=== PATIENT | female | born 1980 | race Caucasian/White ===

== ENCOUNTER 2017-08-18 17:47 | Emergency (ER) | payer BC ==
[~2017-08-18] VITALS: Ht 162.6 cm; Wt 115.5 kg
[~2017-08-18 17:47] MED LIST: AMBIEN5 MG PO; AUGMENTIN875 MG PO; CAMILA0.35 MG PO; CEPHALEXIN500 MG PO; CIPRO500 MG PO; CLONIDINE HCL0.1 MG PO; DEPAKOTE ER (E500 MG PO; DEPAKOTE ER500 MG PO; ENDOCET 5-3251 EACH PO; FLOMAX0.4 MG PO; FLONASE16 G1 BOTH NARES; LABETALOL HCL200 MG PO; LATUDA20 MG PO; LATUDA60 MG PO; LATUDA80 MG PO; LEXAPRO5 MG PO; METRONIDAZOLE500 MG PO; NAPROXEN500 MG PO; NIFEDIPINE ER60 MG PO; ORTHO TRI-CYCL1 EACH PO; PRENATAL TABLE1 EAC3 PO; QUETIAPINE FUM100 MG PO; UNISOM SLEEP AI25 MG PO; ZITHROMAX250 MG PO; ZOFRAN ODT4 MG PO
[2017-08-18 18:20] LABS: ADD MIUA? YES; BILIRUBIN NEGATIVE; BLOOD MODERATE; COLOR YELLOW ((YELLOW)); GLUCOSE (STRIP) NEGATIVE; KETONES NEGATIVE; LEUKOCYTES MODERATE; NITRITE NEGATIVE; PROTEIN (STRIP) NEGATIVE; SPECIFIC GRAVITY 1.009 (1.000-1.030)
[2017-08-18 18:25] LABS: BACTERIA RARE /HPF; EPITHELIAL CELLS 1+ /HPF; MUCUS NONE SEEN /LPF; UCUL ADDED? YES; WHITE BLOOD CELLS 20-30 /HPF (0-5)
[2017-08-18] MEDS ORDERED: BACTRIM,SEPT1 TABLET PO (18:31)
[2017-08-18] MEDS ORDERED: DIVALPROEX SOD500 MG PO (18:31)
[2017-08-18] MEDS ORDERED: ONDANSETRON ODT4 MG PO (18:31)
[2017-08-18] MEDS ORDERED: PENTASA500 MG PO (18:32)
[2017-08-18] MEDS ORDERED: TRI-ESTARYLLA1 EACH PO (18:32)
[2017-08-18 19:01] LABS: HEMATOCRIT 33.2 % (36.0-46.0); MCH 29.5 PG (29.0-34.0); MCHC 33.1 G/DL (30.0-36.0); PLATELET COUNT 152 K/uL (156-360); RBC DIS.WIDTH-CV 13.4 % (11.8-14.6); RBC DIS.WIDTH-SD 44.3 % (39-53); RED BLOOD COUNT 3.73 M/uL (3.80-5.20); WHITE BLOOD COUNT 9.5 K/uL (4.1-10.2)
[2017-08-18 20:27] LABS: CHLORIDE 102 mEq/L (99-109); SODIUM 134 mEq/L (136-147)
[2017-08-18 20:29] LABS: GLUCOSE 94 mg/dL (70-99)
[2017-08-18 20:30] LABS: ANION GAP 9 MEQ/L (2-14)
[2017-08-18 20:31] LABS: TOTAL BILIRUBIN 0.4 mg/dL (0.0-1.0)
[2017-08-18 20:32] LABS: ALKALINE PHOSPHATASE 58 IU/L (3-129)
[2017-08-18 20:33] LABS: GFR ESTIMATE (CALCULATED) > 59 mL/min/
[2017-08-18 20:34] LABS: DIRECT BILIRUBIN 0.3 mg/dL (0.0-0.3); UREA NITROGEN (BUN) 10 mg/dL (9-23)
[2017-08-18 20:36] LABS: LIPASE 3 U/L (1.0-51.0)
[2017-08-18] MEDS ORDERED: ZOFRAN4 MG PO (21:46)
[2017-08-18 22:09] VITALS: BP 115/89
== END 2017-08-18 22:10 | disposition home or self-care (01) ==
LOC: EME 17:47
PROVIDERS: Emergency Medicine
DX: N20.0 Calculus of kidney (principal); N39.0 Urinary tract infection, site not specified; E86.0 Dehydration; Z87.442 Personal history of urinary calculi
CPT/HCPCS: 80048; 80076; 81003; 83605; 83690; 85027; 87040; 87086; 99281; 99284

== ENCOUNTER 2018-06-03 12:53 | Inpatient (IN) | payer BC ==
[2018-06-03] VITALS (7 sets, daily range): BP systolic 95–103; BP diastolic 63–73
[~2018-06-03] VITALS: Ht 165.1 cm; Wt 123.0 kg
[~2018-06-03 12:53] MED LIST changes: +BACTRIM,SEPT1 TABLET PO; +DIVALPROEX SOD500 MG PO; +ONDANSETRON ODT4 MG PO; +PENTASA500 MG PO; +TRI-ESTARYLLA1 EACH PO; +ZOFRAN4 MG PO
[2018-06-03 13:27] LABS: HEMATOCRIT 42.4 % (36.0-46.0); HEMOGLOBIN 13.7 G/DL (11.9-15.5); MCH 29.1 PG (29.0-34.0); MCHC 32.3 G/DL (30.0-36.0); PLATELET COUNT 117 K/uL (156-360); RBC DIS.WIDTH-CV 14.9 % (11.8-14.6); RBC DIS.WIDTH-SD 49.3 % (39-53); RED BLOOD COUNT 4.71 M/uL (3.80-5.20)
[2018-06-03 13:48] LABS: CHLORIDE 101 mEq/L (99-109); POTASSIUM 3.9 mEq/L (3.7-5.4); SODIUM 138 mEq/L (136-147)
[2018-06-03 13:51] LABS: GLUCOSE 92 mg/dL (70-99); TOTAL PROTEIN 5.6 g/dL (6.4-8.3)
[2018-06-03 13:53] LABS: TOTAL BILIRUBIN 0.8 mg/dL (0.0-1.0)
[2018-06-03 13:54] LABS: ALKALINE PHOSPHATASE 95 IU/L (3-129); CREATININE 2.6 mg/dL (0.6-1.3); GFR ESTIMATE (CALCULATED) 22 mL/min/
[2018-06-03 13:55] LABS: UREA NITROGEN (BUN) 26 mg/dL (9-23)
[2018-06-03 13:56] LABS: AST (GOT) 15 IU/L (2-34)
[2018-06-03 13:57] LABS: ALT (GPT) 17 IU/L (3-49)
[2018-06-03 13:58] LABS: LIPASE 7 U/L (1.0-51.0)
[2018-06-03 14:00] LABS: TROP-I INTERPRETATION NEGATIVE; TROPONIN-I 0.07 ng/mL (0.0-0.30)
[2018-06-03 14:46] LABS: QUANTITATIVE HCG < 4.0 MIU/ML
[2018-06-03 15:00] LABS: APPEARANCE CLOUDY ((CLEAR)); BILIRUBIN NEGATIVE; BLOOD SMALL; COLOR AMBER ((YELLOW)); GLUCOSE (STRIP) NEGATIVE; KETONES 5; LEUKOCYTES MODERATE; NITRITE NEGATIVE; PROTEIN (STRIP) 100; SPECIFIC GRAVITY 1.025 (1.000-1.030)
[2018-06-03 15:14] LABS: WHITE BLOOD CELLS TNTC /HPF (0-5)
[2018-06-03 15:15] LABS: BACTERIA 3+ /HPF; EPITHELIAL CELLS 2+ /HPF; MUCUS 1+ /LPF; RED BLOOD CELLS NONE SEEN /HPF (0-5); UCUL ADDED? YES
[2018-06-03] MEDS ORDERED: HIPREX1 GM PO (17:15)
[2018-06-03] MEDS ORDERED: TRI FEMYNOR 281 EACH PO (17:16)
[2018-06-03] MEDS ORDERED: BUDESONIDE EC3 MG PO (17:16)
[2018-06-03] MEDS ORDERED: HUMIRA40 MG/0.1 SC (17:17)
[2018-06-03] MEDS ORDERED: ADVIL200 MG PO (17:19)
[2018-06-03] MEDS ORDERED: TYLENOL EXTRA500 MG PO (17:19)
[2018-06-03 22:47] LABS: HEMATOCRIT 35.9 % (36.0-46.0); MCH 27.9 PG (29.0-34.0); MCHC 30.9 G/DL (30.0-36.0); MCV 90.2 FL (83-99); RBC DIS.WIDTH-SD 49.9 % (39-53); RED BLOOD COUNT 3.98 M/uL (3.80-5.20); WHITE BLOOD COUNT 22.4 K/uL (4.1-10.2)
[2018-06-03 23:02] LABS: HEMOGLOBIN 11.1 G/DL (11.9-15.5); PLAT.SUFFICIENCY VERY DECREASED; PLATELET COUNT 63 K/uL (156-360)
[2018-06-03 23:12] LABS: ALBUMIN 2.4 G/DL (3.2-4.8); ALKALINE PHOSPHATASE 38 IU/L (3-129); ALT (GPT) 12 IU/L (3-49); AST (GOT) 17 IU/L (2-34); CHLORIDE 107 MEQ/L (99-109); CREATININE 2.1 MG/DL (0.6-1.3); GFR ESTIMATE (CALCULATED) 28 mL/min/; GLUCOSE 71 mg/dL (70-99); PHOSPHORUS 3.9 mg/dL (2.5-4.9); POTASSIUM 3.4 MEQ/L (3.7-5.4); SODIUM 139 MEQ/L (136-147); TOTAL BILIRUBIN 0.6 MG/DL (0.0-1.0); TOTAL PROTEIN 4.4 G/DL (6.4-8.3); UREA NITROGEN (BUN) 26 mg/dL (9-23)
[2018-06-03 23:13] LABS: MAGNESIUM 0.8 mg/dl (1.3-2.7)
[2018-06-04] VITALS (30 sets, daily range): BP systolic 83–129; BP diastolic 47–592
[2018-06-04 05:35] LABS: HEMATOCRIT 35.7 % (36.0-46.0); HEMOGLOBIN 11.2 G/DL (11.9-15.5); MCH 28.3 PG (29.0-34.0); MCHC 31.4 G/DL (30.0-36.0); MCV 90.2 FL (83-99); RBC DIS.WIDTH-CV 15.3 % (11.8-14.6); RBC DIS.WIDTH-SD 50.9 % (39-53); RED BLOOD COUNT 3.96 M/uL (3.80-5.20); WHITE BLOOD COUNT 23.6 K/uL (4.1-10.2)
[2018-06-04 05:38] LABS: IMM.PLATELET FRACTION 4.4 (1-7); PLATELET COUNT 50 K/uL (156-360)
[2018-06-04 06:01] LABS: CHLORIDE 108 MEQ/L (99-109); CREATININE 2.2 MG/DL (0.6-1.3); GFR ESTIMATE (CALCULATED) 27 mL/min/; GLUCOSE 80 mg/dL (70-99); POTASSIUM 3.8 MEQ/L (3.7-5.4); SODIUM 138 MEQ/L (136-147); UREA NITROGEN (BUN) 27 mg/dL (9-23)
[2018-06-04 06:03] LABS: MAGNESIUM 2.2 mg/dl (1.3-2.7); PHOSPHORUS 5.7 mg/dL (2.5-4.9)
[2018-06-04 16:40] LABS: HEMATOCRIT 33.9 % (36.0-46.0); HEMOGLOBIN 10.9 G/DL (11.9-15.5); INTER. NORMALIZED RATIO 1.2; MCH 28.9 PG (29.0-34.0); MCHC 32.2 G/DL (30.0-36.0); MCV 89.9 FL (83-99); RBC DIS.WIDTH-CV 15.5 % (11.8-14.6); RBC DIS.WIDTH-SD 51.7 % (39-53); RED BLOOD COUNT 3.77 M/uL (3.80-5.20); WHITE BLOOD COUNT 19.5 K/uL (4.1-10.2)
[2018-06-04 16:43] LABS: PTT 29.3 SEC (25-37)
[2018-06-04 17:33] LABS: ALKALINE PHOSPHATASE 63 IU/L (3-129); ALT (GPT) 14 IU/L (3-49); AST (GOT) 16 IU/L (2-34); CHLORIDE 108 MEQ/L (99-109); CREATININE 2.1 MG/DL (0.6-1.3); GFR ESTIMATE (CALCULATED) 28 mL/min/; POTASSIUM 3.9 MEQ/L (3.7-5.4); SODIUM 136 MEQ/L (136-147); TOTAL PROTEIN 4.1 G/DL (6.4-8.3); UREA NITROGEN (BUN) 27 mg/dL (9-23)
[2018-06-04 17:36] LABS: GLUCOSE 105 mg/dL (70-99); TOTAL BILIRUBIN 0.4 MG/DL (0.0-1.0)
[2018-06-04 17:37] LABS: HIGH-SENS C-REACTIVE PROTEIN < 8.00 MG/DL (0.02-0.20)
[2018-06-04 17:56] LABS: ABS NEUTROPHIL COUNT 18.3; ATYPICAL LYMPHOCYTE 0.9 %; BAND NEUTROPHILS 50.9 % (0-8.0); BASOPH.STIPPLING 1+; EOSINOPHIL ABS CT 0; IMM.PLATELET FRACTION 7.3 (1-7); LYMPHOCYTES 0.8 % (15.0-45.0); MONOCYTES 4.4 % (0-9.0); PLAT.SUFFICIENCY VERY DECREASED; POLYCHROMASIA 1+
[2018-06-04 18:11] LABS: PLATELET COUNT 26 K/uL (156-360)
[2018-06-05] VITALS (29 sets, daily range): BP systolic 85–150; BP diastolic 50–111
[2018-06-05 05:23] LABS: HEMATOCRIT 31.9 % (36.0-46.0); HEMOGLOBIN 9.9 G/DL (11.9-15.5); MCH 27.7 PG (29.0-34.0); MCV 89.4 FL (83-99); RBC DIS.WIDTH-CV 15.6 % (11.8-14.6); RBC DIS.WIDTH-SD 51.3 % (39-53); RED BLOOD COUNT 3.57 M/uL (3.80-5.20); WHITE BLOOD COUNT 15.7 K/uL (4.1-10.2)
[2018-06-05 06:11] LABS: CHLORIDE 107 MEQ/L (99-109); GFR ESTIMATE (CALCULATED) 30 mL/min/; GLUCOSE 140 mg/dL (70-99); MAGNESIUM 1.9 mg/dl (1.3-2.7); PHOSPHORUS 4.8 mg/dL (2.5-4.9); POTASSIUM 3.7 MEQ/L (3.7-5.4); SODIUM 137 MEQ/L (136-147); UREA NITROGEN (BUN) 30 mg/dL (9-23)
[2018-06-05 06:44] LABS: PLATELET CLUMPS PRESENT - PLATELET COUNTS APPEARS DECREASED
[2018-06-05 06:45] LABS: PLATELET COUNT UNABLE TO REPORT K/uL (156-360)
[2018-06-06] VITALS (20 sets, daily range): BP systolic 101–144; BP diastolic 64–98
[2018-06-06 05:35] LABS: HEMATOCRIT 30.5 % (36.0-46.0); HEMOGLOBIN 9.9 G/DL (11.9-15.5); MCH 28.1 PG (29.0-34.0); MCHC 32.5 G/DL (30.0-36.0); MCV 86.6 FL (83-99); NRBC (%) 0.2 /100 WBC (0-0); RBC DIS.WIDTH-CV 15.7 % (11.8-14.6); RBC DIS.WIDTH-SD 49.5 % (39-53); RED BLOOD COUNT 3.52 M/uL (3.80-5.20); WHITE BLOOD COUNT 11.6 K/uL (4.1-10.2)
[2018-06-06 06:03] LABS: PLAT.SUFFICIENCY VERY DECREASED
[2018-06-06 06:11] LABS: IMM.PLATELET FRACTION 7.4 (1-7)
[2018-06-06 06:17] LABS: PLATELET COUNT 21 K/uL (156-360)
[2018-06-06 06:19] LABS: CHLORIDE 108 MEQ/L (99-109); CREATININE 1.6 MG/DL (0.6-1.3); GFR ESTIMATE (CALCULATED) 39 mL/min/; GLUCOSE 84 mg/dL (70-99); POTASSIUM 3.2 MEQ/L (3.7-5.4); SODIUM 141 MEQ/L (136-147); UREA NITROGEN (BUN) 22 mg/dL (9-23)
[2018-06-06 06:20] LABS: MAGNESIUM 1.6 mg/dl (1.3-2.7)
[2018-06-06 20:45] LABS: HEMATOCRIT 30.9 % (36.0-46.0); HEMOGLOBIN 10.3 G/DL (11.9-15.5); MCH 28.8 PG (29.0-34.0); MCHC 33.3 G/DL (30.0-36.0); MCV 86.3 FL (83-99); RBC DIS.WIDTH-CV 15.8 % (11.8-14.6); RBC DIS.WIDTH-SD 49.8 % (39-53); RED BLOOD COUNT 3.58 M/uL (3.80-5.20); WHITE BLOOD COUNT 9.7 K/uL (4.1-10.2)
[2018-06-06 20:55] LABS: INTER. NORMALIZED RATIO 1.3
[2018-06-06 20:57] LABS: ALBUMIN 2.3 g/dL (3.2-4.8); CHLORIDE 111 mEq/L (99-109); POTASSIUM 3.6 mEq/L (3.7-5.4); SODIUM 142 mEq/L (136-147)
[2018-06-06 20:58] LABS: MAGNESIUM 1.6 mg/dL (1.3-2.7); PTT 23.1 SEC (25-37)
[2018-06-06 21:00] LABS: GLUCOSE 91 mg/dL (70-99)
[2018-06-06 21:02] LABS: TOTAL BILIRUBIN 0.5 mg/dL (0.0-1.0); TOTAL PROTEIN 4.4 g/dL (6.4-8.3)
[2018-06-06 21:03] LABS: PHOSPHORUS 2.6 mg/dL (2.5-4.9)
[2018-06-06 21:04] LABS: ALKALINE PHOSPHATASE 55 IU/L (3-129); CREATININE 1.4 mg/dL (0.6-1.3); GFR ESTIMATE (CALCULATED) 45 mL/min/
[2018-06-06 21:05] LABS: UREA NITROGEN (BUN) 26 mg/dL (9-23)
[2018-06-06 21:06] LABS: ALT (GPT) 11 IU/L (3-49)
[2018-06-06 21:18] LABS: AST (GOT) 8 IU/L (2-34)
[2018-06-06 21:45] LABS: IMM.PLATELET FRACTION 9.7 (1-7)
[2018-06-06 21:46] LABS: PLATELET COUNT 22 K/uL (156-360)
[2018-06-07] VITALS (8 sets, daily range): BP systolic 103–142; BP diastolic 62–91
[2018-06-07 05:48] LABS: HEMATOCRIT 31.3 % (36.0-46.0); HEMOGLOBIN 10.2 G/DL (11.9-15.5); MCH 28.5 PG (29.0-34.0); MCHC 32.6 G/DL (30.0-36.0); MCV 87.4 FL (83-99); RBC DIS.WIDTH-CV 15.9 % (11.8-14.6); RBC DIS.WIDTH-SD 51.5 % (39-53); RED BLOOD COUNT 3.58 M/uL (3.80-5.20); WHITE BLOOD COUNT 7.6 K/uL (4.1-10.2)
[2018-06-07 06:16] LABS: CHLORIDE 113 MEQ/L (99-109); CREATININE 1.4 MG/DL (0.6-1.3); GFR ESTIMATE (CALCULATED) 45 mL/min/; GLUCOSE 77 mg/dL (70-99); MAGNESIUM 1.8 mg/dl (1.3-2.7); PHOSPHORUS 3.3 mg/dL (2.5-4.9); POTASSIUM 3.7 MEQ/L (3.7-5.4); SODIUM 145 MEQ/L (136-147); UREA NITROGEN (BUN) 28 mg/dL (9-23)
[2018-06-07 06:52] LABS: PLAT.SUFFICIENCY VERY DECREASED
[2018-06-07 07:45] LABS: IMM.PLATELET FRACTION 7.8 (1-7); PLATELET COUNT 20 K/uL (156-360)
[2018-06-08 03:15] VITALS: BP 120/77
[2018-06-08 07:18] LABS: HEMATOCRIT 31.2 % (36.0-46.0); HEMOGLOBIN 10.1 G/DL (11.9-15.5); MCH 28.3 PG (29.0-34.0); MCHC 32.4 G/DL (30.0-36.0); MCV 87.4 FL (83-99); RBC DIS.WIDTH-CV 16.3 % (11.8-14.6); RBC DIS.WIDTH-SD 51.8 % (39-53); RED BLOOD COUNT 3.57 M/uL (3.80-5.20); WHITE BLOOD COUNT 10.3 K/uL (4.1-10.2)
[2018-06-08 07:26] LABS: CHLORIDE 106 MEQ/L (99-109); CREATININE 1.3 MG/DL (0.6-1.3); GFR ESTIMATE (CALCULATED) 50 mL/min/; GLUCOSE 72 mg/dL (70-99); POTASSIUM 3.6 MEQ/L (3.7-5.4); SODIUM 140 MEQ/L (136-147); UREA NITROGEN (BUN) 24 mg/dL (9-23)
[2018-06-08 07:29] LABS: ABS NEUTROPHIL COUNT 7.4; ANISOCYTOSIS 1+; BASOPHILS 0.9 %; EOSINOPHIL ABS CT 0.2; EOSINOPHILS 1.7 % (0-5.0); IMM.PLATELET FRACTION 9.5 (1-7); LYMPHOCYTES 9.5 % (15.0-45.0); MACROCYTES 1+; METAMYELOCYTES 4.3 %; MICROCYTOSIS 1+; MONOCYTES 10.3 % (0-9.0); MYELOCYTES 1.7 %; PLAT.SUFFICIENCY VERY DECREASED
[2018-06-08 07:35] LABS: BAND NEUTROPHILS 2.6 % (0-8.0); PLATELET COUNT 22 K/uL (156-360)
[2018-06-08 08:28] VITALS: BP 133/85
[2018-06-08 11:40] VITALS: BP 129/79
[2018-06-08 16:59] VITALS: BP 140/81
[2018-06-08 19:21] VITALS: BP 118/75
[2018-06-08 23:00] VITALS: BP 122/72
[2018-06-09 04:43] VITALS: BP 119/70
[2018-06-09 05:59] LABS: CHLORIDE 104 MEQ/L (99-109); CREATININE 1.1 MG/DL (0.6-1.3); GFR ESTIMATE (CALCULATED) > 59 mL/min/; GLUCOSE 80 mg/dL (70-99); POTASSIUM 3.4 MEQ/L (3.7-5.4); SODIUM 136 MEQ/L (136-147); UREA NITROGEN (BUN) 20 mg/dL (9-23)
[2018-06-09 06:07] LABS: HEMOGLOBIN 10.3 G/DL (11.9-15.5); MCH 27.8 PG (29.0-34.0); MCHC 32.2 G/DL (30.0-36.0); MCV 86.5 FL (83-99); RBC DIS.WIDTH-CV 16.2 % (11.8-14.6); RBC DIS.WIDTH-SD 51.1 % (39-53); WHITE BLOOD COUNT 17.6 K/uL (4.1-10.2)
[2018-06-09 07:32] LABS: ABS NEUTROPHIL COUNT 12.4; ANISOCYTOSIS 1+; BAND NEUTROPHILS 9.3 % (0-8.0); BASOPHILS 0.9 %; EOSINOPHIL ABS CT 0.2; EOSINOPHILS 0.9 % (0-5.0); IMM.PLATELET FRACTION 7.9 (1-7); LYMPHOCYTES 9.3 % (15.0-45.0); METAMYELOCYTES 4.6 %; MYELOCYTES 1.9 %; PLAT.SUFFICIENCY DECREASED; SEG.NEUTROPHILS 61.1 % (46.0-76.0); SMUDGE CELLS 0.9
[2018-06-09 07:33] LABS: PLATELET COUNT 48 K/uL (156-360)
[2018-06-09 07:57] VITALS: BP 127/73
[2018-06-09 12:13] VITALS: BP 128/78
[2018-06-09 14:34] VITALS: BP 126/79
[2018-06-09 16:02] VITALS: BP 116/72
[2018-06-09 19:23] VITALS: BP 122/76
[2018-06-10 00:14] VITALS: BP 157/71
[2018-06-10 04:00] VITALS: BP 113/61
[2018-06-10 07:42] VITALS: BP 129/81
[2018-06-10 09:39] LABS: HEMATOCRIT 33.6 % (36.0-46.0); HEMOGLOBIN 10.7 G/DL (11.9-15.5); MCH 27.9 PG (29.0-34.0); MCHC 31.8 G/DL (30.0-36.0); MCV 87.5 FL (83-99); RBC DIS.WIDTH-CV 16.4 % (11.8-14.6); RBC DIS.WIDTH-SD 51.7 % (39-53); RED BLOOD COUNT 3.84 M/uL (3.80-5.20); WHITE BLOOD COUNT 22.3 K/uL (4.1-10.2)
[2018-06-10 09:45] LABS: CHLORIDE 101 MEQ/L (99-109); CREATININE 1.1 MG/DL (0.6-1.3); GFR ESTIMATE (CALCULATED) > 59 mL/min/; GLUCOSE 81 mg/dL (70-99); POTASSIUM 3.9 MEQ/L (3.7-5.4); SODIUM 136 MEQ/L (136-147); UREA NITROGEN (BUN) 16 mg/dL (9-23)
[2018-06-10 09:55] LABS: PLATELET COUNT 95 K/uL (156-360)
[2018-06-10 10:04] LABS: ABS NEUTROPHIL COUNT 16.7; ANISOCYTOSIS 1+; BAND NEUTROPHILS 3.9 % (0-8.0); BASOPHILS 0.4 %; EOSINOPHIL ABS CT 0.3; EOSINOPHILS 1.3 % (0-5.0); LYMPHOCYTES 6.9 % (15.0-45.0); MACROCYTES 1+; METAMYELOCYTES 2.6 %; MONOCYTES 9.1 % (0-9.0); MYELOCYTES 4.8 %; PLAT.SUFFICIENCY DECREASED; SMUDGE CELLS 1.3
[2018-06-10 17:29] VITALS: BP 108/68
[2018-06-10 20:54] VITALS: BP 134/61
[2018-06-11 00:51] VITALS: BP 96/53
[2018-06-11 06:23] VITALS: BP 95/52
[2018-06-11 07:06] LABS: HEMOGLOBIN 9.4 G/DL (11.9-15.5); MCH 27.5 PG (29.0-34.0); MCHC 31.3 G/DL (30.0-36.0); MCV 87.7 FL (83-99); PLATELET COUNT 100 K/uL (156-360); RBC DIS.WIDTH-CV 16.4 % (11.8-14.6); RBC DIS.WIDTH-SD 52.7 % (39-53); RED BLOOD COUNT 3.42 M/uL (3.80-5.20); WHITE BLOOD COUNT 19.9 K/uL (4.1-10.2)
[2018-06-11 07:07] LABS: CHLORIDE 102 MEQ/L (99-109); CREATININE 1.1 MG/DL (0.6-1.3); GFR ESTIMATE (CALCULATED) > 59 mL/min/; GLUCOSE 73 mg/dL (70-99); POTASSIUM 3.9 MEQ/L (3.7-5.4); SODIUM 137 MEQ/L (136-147); UREA NITROGEN (BUN) 14 mg/dL (9-23)
[2018-06-11 07:45] LABS: ABS NEUTROPHIL COUNT 15.6; ANISOCYTOSIS 1+; EOSINOPHIL ABS CT 0; LYMPHOCYTES 9.6 % (15.0-45.0); METAMYELOCYTES 3.5 %; MONOCYTES 4.3 % (0-9.0); MYELOCYTES 4.3 %; SEG.NEUTROPHILS 71.3 % (46.0-76.0)
[2018-06-11 08:16] VITALS: BP 121/76
[2018-06-11 11:52] VITALS: BP 150/93
[2018-06-11 15:49] VITALS: BP 115/69
[2018-06-11 19:16] VITALS: BP 119/63
[2018-06-12] VITALS (7 sets, daily range): BP systolic 113–128; BP diastolic 58–78
[2018-06-12 06:08] LABS: HEMATOCRIT 30.7 % (36.0-46.0); HEMOGLOBIN 9.9 G/DL (11.9-15.5); MCH 27.9 PG (29.0-34.0); MCHC 32.2 G/DL (30.0-36.0); MCV 86.5 FL (83-99); NRBC (%) 0.2 /100 WBC (0-0); RBC DIS.WIDTH-CV 16.3 % (11.8-14.6); RBC DIS.WIDTH-SD 51.4 % (39-53); RED BLOOD COUNT 3.55 M/uL (3.80-5.20)
[2018-06-12 06:09] LABS: PLATELET COUNT 147 K/uL (156-360)
[2018-06-12 06:36] LABS: ANISOCYTOSIS 1+; BURR CELLS 1+; EOSINOPHIL ABS CT 0.2; EOSINOPHILS 0.9 % (0-5.0); LYMPHOCYTES 5.2 % (15.0-45.0); MACROCYTES 1+; METAMYELOCYTES 2.1 %; MONOCYTES 7.8 % (0-9.0); MYELOCYTES 3.9 %; NUCLEATED RBC'S 0.9; PLAT.SUFFICIENCY ADEQUATE; SEG.NEUTROPHILS 80.1 % (46.0-76.0); TEAR DROP CELLS 1+
[2018-06-13 03:56] VITALS: BP 117/60
[2018-06-13 05:50] LABS: HEMATOCRIT 28.3 % (36.0-46.0); HEMOGLOBIN 9.2 G/DL (11.9-15.5); MCH 27.7 PG (29.0-34.0); MCHC 32.5 G/DL (30.0-36.0); MCV 85.2 FL (83-99); NRBC (%) 0.1 /100 WBC (0-0); PLATELET COUNT 172 K/uL (156-360); RBC DIS.WIDTH-CV 16.6 % (11.8-14.6); RBC DIS.WIDTH-SD 50.8 % (39-53); RED BLOOD COUNT 3.32 M/uL (3.80-5.20)
[2018-06-13 06:22] LABS: CHLORIDE 102 MEQ/L (99-109); CREATININE 1.1 MG/DL (0.6-1.3); GFR ESTIMATE (CALCULATED) > 59 mL/min/; POTASSIUM 3.7 MEQ/L (3.7-5.4); SODIUM 136 MEQ/L (136-147); UREA NITROGEN (BUN) 8 mg/dL (9-23)
[2018-06-13 06:27] LABS: GLUCOSE 115 mg/dL (70-99)
[2018-06-13 07:15] VITALS: BP 132/66
[2018-06-13 11:31] VITALS: BP 116/72
[2018-06-14] VITALS: BP 128/75
[2018-06-14 05:51] LABS: HEMATOCRIT 26.3 % (36.0-46.0); HEMOGLOBIN 8.5 G/DL (11.9-15.5); MCH 27.6 PG (29.0-34.0); MCHC 32.3 G/DL (30.0-36.0); MCV 85.4 FL (83-99); PLATELET COUNT 179 K/uL (156-360); RBC DIS.WIDTH-CV 16.6 % (11.8-14.6); RBC DIS.WIDTH-SD 50.7 % (39-53); RED BLOOD COUNT 3.08 M/uL (3.80-5.20); WHITE BLOOD COUNT 18.8 K/uL (4.1-10.2)
[2018-06-14 07:41] VITALS: BP 116/69
[2018-06-14] MEDS ORDERED: CIPRO500 MG PO (09:45)
[2018-06-14] MEDS ORDERED: GABAPENTIN100 MG PO (09:45)
[2018-06-14] MEDS ORDERED: OXYCODONE HCL5 MG PO (09:45)
== END 2018-06-14 13:45 | disposition home or self-care (01) | DRG 871 ==
LOC: EME 12:53 → EDOF 18:33 → 4WEST 18:33 → ENRESERV 18:34 → 4WEST 20:01 → ENRESERV 06-07 10:22 → 4WEST 06-07 11:59 → 4EAST 06-07 12:43 → ENRESERV 06-09 12:29 → 5SOUTH 06-09 14:11
PROVIDERS: Emergency Medicine; Internal Medicine; Obstetrics & Gynecology; Physician Assistant; Student in an Organized Health Care Education/Training Program
PROC: 02H633Z Insertion of Infusion Device into Right Atrium, Percutaneous Approach (ICD-10-PCS; principal; 2018-06-03)
PROC: 0T9130Z Drainage of Left Kidney with Drainage Device, Percutaneous Approach (ICD-10-PCS; principal; 2018-06-03)
DX: A41.59 Other Gram-negative sepsis (principal); R65.21 Severe sepsis with septic shock; N17.9 Acute kidney failure, unspecified; N13.6 Pyonephrosis; R19.7 Diarrhea, unspecified; F31.9 Bipolar disorder, unspecified; Z87.440 Personal history of urinary (tract) infections; Z87.442 Personal history of urinary calculi; K50.90 Crohn's disease, unspecified, without complications; R79.89 Other specified abnormal findings of blood chemistry; E87.2 Acidosis; Z90.5 Acquired absence of kidney; Z87.19 Personal history of other diseases of the digestive system; E66.01 Morbid (severe) obesity due to excess calories; Z68.42 Body mass index [BMI] 45.0-49.9, adult; D69.59 Other secondary thrombocytopenia; M79.89 Other specified soft tissue disorders; E87.6 Hypokalemia; J98.11 Atelectasis
CPT/HCPCS: 50433; 71045; 71046; 71260; 74018; 74176; 74177; 76775; 80048; 80053; 81003; 82140; 83605; 83690; 83735; 83880; 84100; 84145 90; 84484; 84702; 85025; 85027; 85379; 85610; 85730; 86141; 87040; 87077; 87086; 87186; 87641; 87801; 93005; 93306; 93970; 94640; 94760; 94799; 99281; 99285; C1729; C1751; C9113; J0171; J0696; J0780; J1170; J1644; J1885; J1940; J2405; J2543; J2550; J2765; J3010; J3370; J3475; J3480; J7030; J7040; J7050; J7120; P9047; S0028

== ENCOUNTER 2018-06-19 16:25 | Inpatient (IN) | payer BC ==
[~2018-06-19] VITALS: Ht 162.6 cm; Wt 122.0 kg
[~2018-06-19 16:25] MED LIST changes: +ADVIL200 MG PO; +BUDESONIDE EC3 MG PO; +GABAPENTIN100 MG PO; +HIPREX1 GM PO; +HUMIRA40 MG/0.1 SC; +OXYCODONE HCL5 MG PO; +TRI FEMYNOR 281 EACH PO; +TYLENOL EXTRA500 MG PO
[2018-06-19 17:46] LABS: HEMATOCRIT 23.2 % (36.0-46.0); HEMOGLOBIN 7.5 G/DL (11.9-15.5); MCH 28.3 PG (29.0-34.0); MCHC 32.3 G/DL (30.0-36.0); MCV 87.5 FL (83-99); RBC DIS.WIDTH-CV 16.2 % (11.8-14.6); RBC DIS.WIDTH-SD 50.8 % (39-53); RED BLOOD COUNT 2.65 M/uL (3.80-5.20); WHITE BLOOD COUNT 18.1 K/uL (4.1-10.2)
[2018-06-19 17:47] LABS: PLATELET COUNT 267 K/uL (156-360)
[2018-06-19 17:56] LABS: CHLORIDE 102 mEq/L (99-109)
[2018-06-19 17:57] LABS: SODIUM 137 mEq/L (136-147)
[2018-06-19 17:58] LABS: GLUCOSE 81 mg/dL (70-99)
[2018-06-19 18:02] LABS: CREATININE 1.5 mg/dL (0.6-1.3); GFR ESTIMATE (CALCULATED) 42 mL/min/
[2018-06-19 18:03] LABS: UREA NITROGEN (BUN) 9 mg/dL (9-23)
[2018-06-19] MEDS ORDERED: ZOFRAN8 MG PO (21:27)
[2018-06-19 22:19] LABS: APPEARANCE CLOUDY ((CLEAR)); BILIRUBIN NEGATIVE; BLOOD MODERATE; COLOR YELLOW ((YELLOW)); GLUCOSE (STRIP) NEGATIVE; KETONES NEGATIVE; LEUKOCYTES LARGE; NITRITE NEGATIVE; PROTEIN (STRIP) 100; SPECIFIC GRAVITY 1.006 (1.000-1.030); UROBILINOGEN 0.2 MG/DL (0.2-1.0)
[2018-06-19 22:35] LABS: BACTERIA RARE /HPF; EPITHELIAL CELLS NONE SEEN /HPF; MUCUS TRACE /LPF; RED BLOOD CELLS TNTC /HPF (0-5); UCUL ADDED? YES; WHITE BLOOD CELLS 30-40 /HPF (0-5)
[2018-06-20] VITALS (10 sets, daily range): BP systolic 97–132; BP diastolic 51–78
[2018-06-20 05:40] LABS: MCH 27.5 PG (29.0-34.0); MCHC 31.5 G/DL (30.0-36.0); MCV 87.3 FL (83-99); PLATELET COUNT 198 K/uL (156-360); RBC DIS.WIDTH-CV 15.9 % (11.8-14.6); RBC DIS.WIDTH-SD 50.4 % (39-53); RED BLOOD COUNT 2.29 M/uL (3.80-5.20); WHITE BLOOD COUNT 12.4 K/uL (4.1-10.2)
[2018-06-20 05:47] LABS: HEMOGLOBIN 6.3 G/DL (11.9-15.5)
[2018-06-20 05:48] LABS: CHLORIDE 106 MEQ/L (99-109); CREATININE 1.4 MG/DL (0.6-1.3); GFR ESTIMATE (CALCULATED) 45 mL/min/; POTASSIUM 3.6 MEQ/L (3.7-5.4); SODIUM 138 MEQ/L (136-147); UREA NITROGEN (BUN) 9 mg/dL (9-23)
[2018-06-20 06:12] LABS: GLUCOSE 115 mg/dL (70-99)
[2018-06-20 06:30] LABS: HEMATOCRIT 19.8 % (36.0-46.0); MCV 87.2 FL (83-99)
[2018-06-20 06:31] LABS: HEMOGLOBIN 6.4 G/DL (11.9-15.5)
[2018-06-20 06:53] LABS: ABS NEUTROPHIL COUNT 9.5; ANISOCYTOSIS NONE SEEN; EOSINOPHIL ABS CT 0.1; EOSINOPHILS 0.9 % (0-5.0); HYPOCHROMASIA 1+; LYMPHOCYTES 14.8 % (15.0-45.0); MONOCYTES 6.9 % (0-9.0); MYELOCYTES 0.9 %; PLAT.SUFFICIENCY ADEQUATE; SEG.NEUTROPHILS 76.5 % (46.0-76.0)
[2018-06-20 07:07] LABS: ALBUMIN 1.9 G/DL (3.2-4.8); ALKALINE PHOSPHATASE 36 IU/L (3-129); AST (GOT) < 7 IU/L (2-34); TOTAL BILIRUBIN 0.2 MG/DL (0.0-1.0); TOTAL PROTEIN 5.7 G/DL (6.4-8.3)
[2018-06-20 07:09] LABS: ALT (GPT) < 3 IU/L (3-49)
[2018-06-20 08:23] LABS: IRON 18 MCG/DL (35-150); TRANSFERRIN (TIBC) 161.7 mg/dL (215-380); TRANSFERRIN SATUR. 11 % (20-55)
[2018-06-20 09:10] LABS: FOLIC ACID (FOLATE) 9.7 NG/ML (5.0-22.0)
[2018-06-20 16:07] LABS: MCV 89.2 FL (83-99)
[2018-06-21 03:44] VITALS: BP 107/52
[2018-06-21 08:43] VITALS: BP 114/51
[2018-06-21 11:10] LABS: HEMATOCRIT 23.8 % (36.0-46.0); MCHC 33.6 G/DL (30.0-36.0); MCV 86.2 FL (83-99); NRBC (%) 0.1 /100 WBC (0-0); RBC DIS.WIDTH-CV 15.8 % (11.8-14.6); RBC DIS.WIDTH-SD 49.6 % (39-53); WHITE BLOOD COUNT 16.4 K/uL (4.1-10.2)
[2018-06-21 11:11] LABS: PLATELET COUNT 259 K/uL (156-360); RED BLOOD COUNT 2.76 M/uL (3.80-5.20)
[2018-06-21 11:20] LABS: CHLORIDE 105 mEq/L (99-109); SODIUM 135 mEq/L (136-147)
[2018-06-21 11:22] LABS: GLUCOSE 103 mg/dL (70-99)
[2018-06-21 11:26] LABS: CREATININE 1.2 mg/dL (0.6-1.3); GFR ESTIMATE (CALCULATED) 54 mL/min/
[2018-06-21 11:27] LABS: UREA NITROGEN (BUN) 6 mg/dL (9-23)
[2018-06-21 11:31] LABS: POTASSIUM 4.7 mEq/L (3.7-5.4)
[2018-06-21 12:22] VITALS: BP 136/70
[2018-06-21 16:20] VITALS: BP 107/71
[2018-06-21 20:35] LABS: HEMATOCRIT 27.1 % (36.0-46.0); HEMOGLOBIN 8.5 G/DL (11.9-15.5); MCH 28.3 PG (29.0-34.0); MCHC 31.4 G/DL (30.0-36.0); MCV 90.3 FL (83-99); NRBC (%) 0.1 /100 WBC (0-0); PLATELET COUNT 240 K/uL (156-360); RBC DIS.WIDTH-CV 15.8 % (11.8-14.6); RBC DIS.WIDTH-SD 51.9 % (39-53); WHITE BLOOD COUNT 16.7 K/uL (4.1-10.2)
[2018-06-22] VITALS (7 sets, daily range): BP systolic 91–126; BP diastolic 45–65
[2018-06-22 09:04] LABS: HEMATOCRIT 26.1 % (36.0-46.0); HEMOGLOBIN 8.6 G/DL (11.9-15.5); MCH 28.5 PG (29.0-34.0); MCV 86.4 FL (83-99); PLATELET COUNT 231 K/uL (156-360); RBC DIS.WIDTH-CV 15.8 % (11.8-14.6); RBC DIS.WIDTH-SD 49.6 % (39-53); RED BLOOD COUNT 3.02 M/uL (3.80-5.20); WHITE BLOOD COUNT 17.6 K/uL (4.1-10.2)
[2018-06-23 00:41] VITALS: BP 105/53
[2018-06-23 04:33] VITALS: BP 105/55
[2018-06-23 07:30] VITALS: BP 116/59
[2018-06-23 11:58] VITALS: BP 106/61
== END 2018-06-23 16:51 | disposition home or self-care (01) | DRG 872 ==
LOC: EME 16:25 → EDOF 22:30 → 4SOUTH 22:30 → EDOF 22:30 → ENRESERV 22:36 → 4SOUTH 06-20 00:12 → ENRESERV 06-20 00:16 → 4SOUTH 06-20 10:49
PROVIDERS: Emergency Medicine; Hospitalist; Nurse Practitioner Adult Health; Nurse Practitioner Family; Physician Assistant Medical
PROC: 30233N1 Transfusion of Nonautologous Red Blood Cells into Peripheral Vein, Percutaneous Approach (ICD-10-PCS; principal; 2018-06-20)
DX: A41.9 Sepsis, unspecified organism (principal); N13.6 Pyonephrosis; Z93.6 Other artificial openings of urinary tract status; D50.9 Iron deficiency anemia, unspecified; E46 Unspecified protein-calorie malnutrition; E86.0 Dehydration; I95.9 Hypotension, unspecified; K59.00 Constipation, unspecified; R00.0 Tachycardia, unspecified; K50.90 Crohn's disease, unspecified, without complications; E66.9 Obesity, unspecified; Z68.42 Body mass index [BMI] 45.0-49.9, adult; F31.9 Bipolar disorder, unspecified; Z79.2 Long term (current) use of antibiotics; Z87.440 Personal history of urinary (tract) infections
CPT/HCPCS: 71046; 74176; 80048; 80076; 81003; 82272; 82607; 82746; 83540; 83605; 84466; 85014; 85018; 85025; 85027; 86850; 86900; 86901; 86920; 87040; 87086; 99281; 99285; G0378; J0692; J0696; J1756; J2405; J3370; J7030; J7050; P9016; S0028

== ENCOUNTER 2018-07-10 08:23 | Day surgery (SDC) | payer BC ==
[~2018-07-10] VITALS: Ht 162.6 cm; Wt 114.7 kg
[~2018-07-10 08:23] MED LIST changes: +ZOFRAN8 MG PO
[2018-07-10] MEDS ORDERED: HUMIRA CRO40 MG/0.8 SC (09:11)
[2018-07-10 09:13] VITALS: BP 119/58
[2018-07-10 13:02] VITALS: BP 112/73
[2018-07-10 13:54] VITALS: BP 111/64
== END 2018-07-10 13:55 | disposition home or self-care (01) ==
LOC: SDC 08:23
PROVIDERS: Urology
DX: N20.1 Calculus of ureter (principal); G47.30 Sleep apnea, unspecified; R94.31 Abnormal electrocardiogram [ECG] [EKG]
CPT/HCPCS: 81025; C2625; J0330; J0690; J1100; J2250; J2405; J3010